=== PATIENT | male | born 1965 | race Caucasian/White ===

== ENCOUNTER 2020-08-22 12:54 | Emergency (ER) | payer OTHER, SELFPAY ==
[2020-08-22 14:00] VITALS: BP 149/91; PULSE 127; RESP 14; TEMP 36.7; O2SAT 96; BMI 29.7
--- NOTE | 2020-08-22 14:13 | HMH.EDUTC ---
[facility] Disposition Clinical Impression: Exposure to COVID-19 virus Disposition: Home, Self-Care Condition on Discharge: Good Instructions: DI for COVID-19 (Suspected or Confirmed ), Preventing the Spread of Coronavirus Discharge Instructions, How to Care for Someone with COVID-19 Additional Instructions: increase fluids tylenol for pain or fever if symptoms worsen or do not improve retrun or be seen in ed Referrals: Arik Mcleod MD [Primary Care Provider] - Time of Disposition: 16:08 Medical Decision Making - Rao Inquiry Pt receiving controlled substance: No Vital Signs: 08/22/20 14:00 08/22/20 15:10 Temperature 98.1 F 98.1 F Temperature Source Oral Pulse Rate 127 H Pulse Rate [Right Brachial] 127 H Respiratory Rate 14 14 Blood Pressure 149/91 H Blood Pressure [Right Arm] 149/91 H Blood Pressure Mean [Right Arm] 110 Blood Pressure Source [Right Arm] Automatic Cuff Blood Pressure Position [Right Arm] Sitting 02 Sat by Pulse Oximetry 96 Oxygen Delivery Method Room Air - Lab Data Lab Results 08/22/20 14:30: WBC 5.8, RBC 5.31, Hgb 16.7, Hct 49.2, MCV 92.6, MCH 31.4 H, MCHC 33.9, RDW 12.9, Plt Count 175, MPV 8.1, Neut % (Auto) 74.0, Lymph % (Auto) 17.7, Lamar % (Auto) 7.3, Eos % (Auto) 0.2, Baso % (Auto) 0.9, Neut # (Auto) 4.3, Lymph # (Auto) 1.0, Lamar # (Auto) 0.4, Eos # (Auto) 0.0, Baso # (Auto) 0.1 08/22/20 14:30: Sodium 137, Potassium 3.9, Chloride 96 L, Carbon Dioxide 31 H, Anion Gap 13.9, BUN 14, Creatinine 0.90, Estimated Creat Clear 116, Estimated GFR 88, Est GFR ( Amer) 107, Glucose 104 H, Calcium 9.6, Total Bilirubin 0.6, AST 44, ALT 45, Alkaline Phosphatase 71, Total Creatine Kinase 88, CK-MB (CK-2) 0.4, CK-MB (CK-2) Rel Index 0.5, Troponin I < 0.01, Total Protein 8.5 H, Albumin 4.6, Globulin 3.9 H, Albumin/Globulin Ratio 1.2 Result diagrams: 08/22/20 14:30 08/22/20 14:30 Orders (Tests/Meds): ED MEDICATIONS Generic Name Dose Route Start Last Admin Trade Name Misty PRN Reason Stop Dose Admin Sodium Chloride 1,000 mls @ 999 mls/hr 08/22/20 14:45 08/22/20 14:35 Sod Chlor 0.9% 1000ml Bag IV 08/22/20 15:45 999 mls/hr .Q1H1M WILL Administration ORDERS Category Date Time Status Covid-19 Nasal PCR ([facility]) Routine Lab 08/22/20 14:00 Received [facility] HPI - General Chief complaint: Urgent Treatment Center Stated complaint: headaches, earpain, cough Time Seen by Provider: 08/22/20 14:13 Mode of Arrival: Ambulatory Source of Information: Patient Limitations: No Limitations Description of Symptoms (Recalled from Triage Doc. by RN): PATIENT C/O HEADACHE, COUGH, LOSS OF APPETITE, DIARRHEA, EAR ACHE, CONGESTION, AND WEAKNESS X 5 DAYS HEENT Symptoms (Recalled from RN notes): Yes Resp Symptoms (Recalled from RN notes): No Skin Symptoms (Recalled from RN notes): No MS Symptoms (Recalled from RN notes): No Functional Status (Recalled from RN notes): WNL - History of Present Illness Provider Complaint: 55 yr old male presents for fever, diarrhea, nausea, cough, weakness for one week. pt states he had blood work for covid last week was neg - Related Data Home Medications Medication Instructions Recorded Confirmed Omeprazole [Omeprazole 20mg 20 mg PO DAILY 10/22/18 11/16/18 Capsule] Previous Rx's Medication Instructions Recorded amoxicillin 875 mg-potassium 1 tab PO Q12H 10 Days #20 tab 11/16/18 clavulanate 125 mg tablet benzonatate 100 mg capsule 100 mg PO TID PRN #30 cap 11/16/18 Allergies Allergy/AdvReac Type Severity Reaction Status Date / Time naproxen Allergy Severe Anaphylaxis Verified 08/22/20 14:13 - Worker's Comp Is this a Worker's Comp case?: No [facility] History - Hepatitis A Screen Drug use history?: No High risk sexual behaviors?: No History of sexually transmitted infection?: No Currently employed?: No Childcare worker?: No Do you have indoor plumbing?: Yes Do you have electricity?: Yes Attestation statement::
[2020-08-22 15:09] LABS: Basophils # 0.1 K/mm3 (0-0.2); Basophils % 0.9 % (0.1-2.0); Eosinophils % 0.2 % (0.1-12.0); Hematocrit 49.2 % (42.0-52.0); Hemoglobin 16.7 g/dL (14.1-18.0); Lymphocytes % 17.7 % (10-50); Mean Corpuscular HGB Conc 33.9 g/dL (31.8-35.4); Mean Corpuscular Hemoglobin 31.4 pg (27.0-31.2); Mean Corpuscular Volume 92.6 fl (80-94); Mean Platelet Volume 8.1 fl (7.4-10.4); Monocytes # 0.4 K/mm3 (0.1-1.0); Monocytes % 7.3 % (1.7-9.3); Neutrophils # 4.3 K/mm3 (1.8-7.8); Platelet Count 175 K/mm3 (142-424); Red Blood Count 5.31 M/mm3 (4.60-6.20); Red Cell Distribution Width 12.9 % (11.5-17.5); White Blood Count 5.8 K/mm3 (4.8-10.8)
[2020-08-22 15:10] VITALS: BP 149/91; PULSE 127; RESP 14; TEMP 36.7; O2SAT 100
[2020-08-22 15:16] LABS: Alanine Aminotransferase 45 U/L (12-78); Albumin Level 4.6 g/dl (3.5-5.0); Albumin/Globulin Ratio 1.2 (1.1-1.8); Alkaline Phosphatase 71 U/L (38-126); Anion Gap 13.9 mEq/L (5-15); Aspartate Amino Transferase 44 U/L (17-59); Bilirubin,Total 0.6 mg/dl (0.2-1.3); Blood Urea Nitrogen 14 mg/dl (9-20); Calcium 9.6 mg/dl (8.4-10.2); Carbon Dioxide 31 mmol/L (22.0-30.0); Chloride 96 mmol/L (98-107); Creatine Kinase 88 U/L (55-170); Creatinine Clearance Estimated 116 mL/min (50-200); Estimated Glomerular Filt Rate 88 ml/min (>60); GFR (African American) 107 ML/MIN (>60); Globulin 3.9 g/dL (1.3-3.2); Glucose 104 mg/dl (74-100); Potassium 3.9 mmoL/L (3.5-5.1); Sodium 137 mmol/L (136-145); Total Protein,Serum 8.5 g/dl (6.3-8.2)
[2020-08-22 15:29] LABS: CKMB Relative Index 0.5 U/L (0-4.0); Creatine Kinase MB 0.4 ng/ml (0.0-2.03)
[2020-08-22 15:30] LABS: Troponin I < 0.01 ng/ml (0.00-0.034)
[2020-08-22 16:10] VITALS: PULSE 98
--- NOTE | 2020-08-22 20:09 | PC.NURSE ---
POSITIVE COVID RESULTS CALLED TO PATIENT
[2020-08-22 21:26] LABS: UTC Influenza A Antigen Negative (Negative); UTC Influenza B Antigen Negative (Negative)
== END 2020-08-22 15:15 | disposition home or self-care (01) ==
PROVIDERS: Emergency Provider Nurse Practitioner Family; PCP Family Medicine
DX: U07.1 COVID-19 (principal); K21.9 Gastro-esophageal reflux disease without esophagitis
CPT/HCPCS: 80053; 82550; 82553; 84484; 85025; 87804; 96365; 99202; G0463; U0003

== ENCOUNTER → 2022-07-04 15:29 | Outpatient (CLI) | payer SELFPAY ==
--- NOTE | 2022-07-04 15:49 | XR_ITS ---
FINAL REPORT CLINICAL HISTORY: Sterno-clavicular joint enlargement FINDINGS: 2 views of the left clavicle were obtained. There is no acute fracture. The joint spaces are intact. There is no soft tissue abnormality. There is old granulomatous disease noted in the left upper lobe. IMPRESSION: No acute process. Reviewed, Interpreted and Dictated by Alphonso Schulte MD Transcribed by Brian Null Authenticated and [facility]
== END ==
PROVIDERS: PCP Family Medicine; Visit Provider Family Medicine
DX: M25.512 Pain in left shoulder (principal)
CPT/HCPCS: 73000

== ENCOUNTER → 2022-09-19 01:00 | Outpatient (CLI) | payer SELFPAY ==
[2022-09-19 18:29] LABS: Alanine Aminotransferase 36 U/L (12-78); Albumin Level 4.3 g/dl (3.5-5.0); Albumin/Globulin Ratio 1.8 (1.1-1.8); Alkaline Phosphatase 56 U/L (38-126); Anion Gap 11.1 mEq/L (5-15); Aspartate Amino Transferase 37 U/L (17-59); Bilirubin,Total 0.6 mg/dl (0.2-1.3); Blood Urea Nitrogen 17 mg/dl (9-20); Calcium 8.8 mg/dl (8.4-10.2); Carbon Dioxide 28 mmol/L (22.0-30.0); Chloride 102 mmol/L (98-107); Cholesterol 234 mg/dl (140-200); Estimated Glomerular Filt Rate 88 ml/min (>60); GFR (African American) 106 ML/MIN (>60); Globulin 2.4 g/dL (1.3-3.2); Glucose 80 mg/dl (74-100); HDL Cholesterol 59 mg/dl (40-60); Potassium 4.1 mmoL/L (3.5-5.1); Sodium 137 mmol/L (136-145); Total Protein,Serum 6.7 g/dl (6.3-8.2); Triglycerides 180 mg/dl (30-150); VLDL Cholesterol 36 mg/dL (0-40)
[2022-09-19 18:40] LABS: Direct LDL Cholesterol 126.39 mg/dL (100-129)
[2022-09-19 18:59] LABS: Prostate Specific Ag Screen 1.2 ng/ml (0.0-4.0)
== END ==
PROVIDERS: PCP Family Medicine; Visit Provider Family Medicine
DX: E78.5 Hyperlipidemia, unspecified (principal); I10 Essential (primary) hypertension; Z12.5 Encounter for screening for malignant neoplasm of prostate
CPT/HCPCS: 80053; 80061; G0103

== ENCOUNTER 2023-09-03 18:55 | Outpatient (CLI) | payer OTHER, SELFPAY ==
[2023-09-03 18:16] LABS: Coronavirus 19, PCR Not Detected (NotDetected); Influenza A, PCR Not Detected (NotDetected); Influenza B, PCR Not Detected (NotDetected)
[2023-09-03 18:48] LABS: Basophils % 0.5 % (0.1-2.0); Eosinophils % 0.2 % (0.1-12.0); Hematocrit 43.9 % (42.0-52.0); Hemoglobin 15.1 g/dL (14.1-18.0); Lymphocytes # 1.1 K/mm3 (0.7-4.5); Lymphocytes % 19.2 % (10-50); Mean Corpuscular HGB Conc 34.3 g/dL (31.8-35.4); Mean Corpuscular Hemoglobin 32.6 pg (27.0-31.2); Mean Corpuscular Volume 95.2 fl (80-94); Mean Platelet Volume 9.5 fl (7.4-10.4); Monocytes # 0.5 K/mm3 (0.1-1.0); Neutrophils # 4.1 K/mm3 (1.8-7.8); Platelet Count 106 K/mm3 (142-424); Red Blood Count 4.62 M/mm3 (4.60-6.20); Red Cell Distribution Width 12.9 % (11.5-17.5); White Blood Count 5.6 K/mm3 (4.8-10.8)
[2023-09-03 18:50] LABS: Alanine Aminotransferase 41 U/L (12-78); Albumin/Globulin Ratio 1.5 (1.1-1.8); Alkaline Phosphatase 67 U/L (38-126); Anion Gap 12.5 mEq/L (5-15); Aspartate Amino Transferase 43 U/L (17-59); Bilirubin,Total 0.6 mg/dl (0.2-1.3); Blood Urea Nitrogen 14 mg/dl (9-20); Calcium 8.1 mg/dl (8.4-10.2); Carbon Dioxide 25 mmol/L (22.0-30.0); Chloride 100 mmol/L (98-107); Estimated Glomerular Filt Rate 87 ml/min (>60); GFR (African American) 106 ML/MIN (>60); Globulin 2.6 g/dL (1.3-3.2); Glucose 111 mg/dl (74-100); Potassium 3.5 mmoL/L (3.5-5.1); Sodium 134 mmol/L (136-145); Total Protein,Serum 6.6 g/dl (6.3-8.2)
== END 2023-09-03 23:59 ==
PROVIDERS: PCP Nurse Practitioner; Visit Provider Nurse Practitioner
DX: J06.9 Acute upper respiratory infection, unspecified (principal)
CPT/HCPCS: 80053; 85025; 87636

== ENCOUNTER 2024-08-14 12:47 | Outpatient (CLI) | payer OTHER, SELFPAY ==
[2024-08-14 19:29] LABS: Microalbumin/Creatinine Ratio 5.3
[2024-08-14 19:30] LABS: Hemoglobin 14.8 g/dL (14.1-18.0); Red Blood Count 4.59 M/mm3 (4.60-6.20); White Blood Count 4.2 K/mm3 (4.8-10.8)
[2024-08-14 19:31] LABS: Eosinophils # 0.3 K/mm3 (0.0-0.4); Eosinophils % 6.3 % (0.1-12.0); Hematocrit 45.1 % (42.0-52.0); Lymphocytes # 1.2 K/mm3 (0.7-4.5); Lymphocytes % 28.2 % (10-50); Mean Corpuscular HGB Conc 32.8 g/dL (31.8-35.4); Mean Corpuscular Hemoglobin 32.2 pg (27.0-31.2); Mean Corpuscular Volume 98.3 fl (80-94); Mean Platelet Volume 10.8 fl (7.4-10.4); Monocytes # 0.5 K/mm3 (0.1-1.0); Monocytes % 11.8 % (1.7-9.3); Neutrophils # 2.2 K/mm3 (1.8-7.8); Neutrophils % 52.2 % (37.0-80.0); Platelet Count 151 K/mm3 (142-424); Red Cell Distribution Width 12.5 % (11.5-17.5)
[2024-08-14 19:37] LABS: Creatinine,Urine Random 128 mg/dL (Not Estab.)
[2024-08-14 20:06] LABS: Albumin Level 4.1 g/dl (3.5-5.0); Chloride 107 mmol/L (98-107); Potassium 4.3 mmoL/L (3.5-5.1); Sodium 137 mmol/L (136-145)
[2024-08-14 20:09] LABS: Alanine Aminotransferase 43 U/L (12-78); Albumin/Globulin Ratio 1.6 (1.1-1.8); Alkaline Phosphatase 59 U/L (38-126); Anion Gap 11.3 mEq/L (5-15); Aspartate Amino Transferase 45 U/L (17-59); Bilirubin,Total 0.5 mg/dl (0.2-1.3); Blood Urea Nitrogen 17 mg/dl (9-20); Carbon Dioxide 23 mmol/L (22.0-30.0); Cholesterol 240 mg/dl (140-200); Estimated Glomerular Filt Rate 100 ml/min (>60); GFR (African American) 121 ML/MIN (>60); Globulin 2.5 g/dL (1.3-3.2); Glucose 100 mg/dl (74-100); Total Protein,Serum 6.6 g/dl (6.3-8.2); Triglycerides 293 mg/dl (30-150); VLDL Cholesterol 59 mg/dL (0-40)
[2024-08-14 20:10] LABS: Calcium 9.4 mg/dl (8.4-10.2); Chol/HDL Ratio 4.4 (1-3.5); HDL Cholesterol 54 mg/dl (40-60)
[2024-08-14 20:21] LABS: Direct LDL Cholesterol 128.82 mg/dL (100-129)
[2024-08-14 20:40] LABS: Thyroid Stimulating Hormone 1.16 uIU/mL (0.465-4.68)
[2024-08-14 21:04] LABS: Prostate Specific Ag Screen 1.4 ng/ml (0.0-4.0)
[2024-08-14 21:23] LABS: Vitamin B12 260 pg/mL (239-931)
[2024-08-14 21:44] LABS: Hemoglobin A1C 5.1 % (4.0-6.0)
[2024-08-16 08:10] LABS: Testosterone,Total 292 ng/dL (264-916)
== END 2024-08-14 23:59 | disposition home or self-care (01) ==
LOC: LAB.DROPOF 08-18 12:48
PROVIDERS: PCP Nurse Practitioner; Visit Provider Nurse Practitioner
DX: Z13.21 Encounter for screening for nutritional disorder (principal); Z12.5 Encounter for screening for malignant neoplasm of prostate; Z13.1 Encounter for screening for diabetes mellitus; I10 Essential (primary) hypertension; E79.0 Hyperuricemia without signs of inflammatory arthritis and tophaceous disease; E78.5 Hyperlipidemia, unspecified; K21.9 Gastro-esophageal reflux disease without esophagitis; N52.9 Male erectile dysfunction, unspecified; Z68.32 Body mass index [BMI] 32.0-32.9, adult; E66.9 Obesity, unspecified
CPT/HCPCS: 80050; 80053; 80061; 82043; 82570; 82607; 83036; 84403; 84443; 85025; G0103

== ENCOUNTER 2025-06-17 13:29 | Outpatient (CLI) | payer OTHER, SELFPAY ==
--- NOTE | 2025-06-17 13:34 | XR_ITS ---
FINAL REPORT TECHNIQUE: Chest PA & Lateral CLINICAL HISTORY: cough, orthopnea, bibasilar rales COMPARISON: None FINDINGS: 2 views of the chest were performed. The heart size is normal. The mediastinum is within normal limits. The lungs are underinflated. There is mild bibasilar atelectasis. There are no pleural effusions. There is no pneumothorax. The bony thorax appears intact. IMPRESSION: Mild bibasilar atelectasis. Reviewed, Interpreted and Dictated by Alphonso Schulte MD Transcribed by Selma Rangel Authenticated and [facility]
--- OUTSIDE RECORDS SUMMARY | 2025-06-17 13:36 | XMS_ITS | Clinical Summary ---
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 Active Surgical History Surgery Date Site/Laterality Comments CARPAL TUNNEL RELEASE NASAL SEPTUM SURGERY Social History Tobacco Use Types Packs/Day Years Used Date Smoking Tobacco: Never Sex and Gender Information Value Date Recorded Sex Assigned at Not on file Legal Sex Male 3:58 PM EDT Gender Identity Not on file Sexual Orientation Not on file Last Filed Vital Signs Vital Sign Reading Time Taken Comments Blood Pressure 124/79 02/02/2015 7:05 PM EDT Pulse 84 02/02/2015 7:05 PM EDT Temperature 36.8 C (98.2 F) 02/02/2015 7:05 PM EDT Respiratory Rate 16 02/02/2015 7:05 PM EDT Oxygen Saturation 99% 02/02/2015 7:05 PM EDT Inhaled Oxygen Concentration - - Weight 83.5 kg (184 lb) 02/02/2015 5:12 PM EDT Height 170.2 cm (5' 7 ) 02/02/2015 5:12 PM EDT Body Mass Index 28.82 02/02/2015 5:12 PM EDT Plan of Treatment Health Maintenance Due Date Last Done Comments Annual Wellness Exam 1970 DTaP/TDaP/Td (1 - Tdap) 1986 Hepatitis B Vaccine (1 of 3 - 19+ 3-dose series) 1986 Cologuard 2012 Colon Cancer Screening 2012 Colonoscopy 2012 FIT 2012 Sigmoidoscopy 2012 Virtual Colonography 2012 Pneumococcal Vaccine 50+ (1 of 1 - PCV) 2017 Zoster (1 of 2) 2017 COVID-19 Vaccine (1 - 2024-2 6 season) 2025 Influenza Vaccine (#1) 2025 Meningococcal B Vaccine Aged Out No l onger eligible based on patient's age to complete this topic Insurance * Guarantor: Dimitri Chun Account Type Relation to Patient Date of Phone Billing Address Personal/Family Self 1965 [address] [place] [address] [employer] 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
[2025-06-17 18:34] LABS: Hematocrit 45.3 % (42.0-52.0); Hemoglobin 14.9 g/dL (14.1-18.0); Immature Granulocytes % 0.4 %; Mean Corpuscular HGB Conc 32.9 g/dL (31.8-35.4); Mean Corpuscular Hemoglobin 33.2 pg (27.0-31.2); Mean Corpuscular Volume 100.9 fl (80-94); Nucleated Red Blood Cells % 0 %; Platelet Count 156 K/mm3 (142-424); Red Blood Count 4.49 M/mm3 (4.60-6.20); Red Cell Distribution Width-SD 46.5 fL; White Blood Count 5.2 K/mm3 (4.8-10.8)
[2025-06-17 19:29] LABS: Alanine Aminotransferase 58 U/L (12-78); Albumin Level 3.6 g/dl (3.5-5.0); Albumin/Globulin Ratio 0.9 (1.1-1.8); Alkaline Phosphatase 74 U/L (38-126); Anion Gap 12.6 mEq/L (5-15); Aspartate Amino Transferase 55 U/L (17-59); Bilirubin,Total 0.6 mg/dl (0.2-1.3); Blood Urea Nitrogen 15 mg/dl (9-20); Calcium 9.4 mg/dl (8.4-10.2); Carbon Dioxide 29 mmol/L (22.0-30.0); Chloride 101 mmol/L (98-107); Cholesterol 242 mg/dl (140-200); Creatinine,Serum 0.90 mg/dl (0.66-1.25); Estimated Glomerular Filt Rate 87 ml/min (>60); GFR (African American) 105 ML/MIN (>60); Globulin 4.0 g/dL (1.3-3.2); Glucose 106 mg/dl (74-100); HDL Cholesterol 64 mg/dl (40-60); Potassium 4.6 mmoL/L (3.5-5.1); Sodium 138 mmol/L (136-145); Total Protein,Serum 7.6 g/dl (6.3-8.2); Triglycerides 237 mg/dl (30-150)
[2025-06-17 19:39] LABS: NT Pro Brain Natriuretic Pep. 84.3 pg/mL (0-125)
[2025-06-17 20:19] LABS: Hepatitis C Ab Qual. W/ RFX NEGATIVE (Negative)
[2025-06-18 12:18] LABS: Hemoglobin A1C 5.3 % (4.0-6.0)
[2025-06-19 06:11] LABS: Hepatitis B Surface Antigen Negative (Negative)
== END 2025-06-17 23:59 | disposition home or self-care (01) ==
LOC: RAD 13:30
PROVIDERS: PCP Nurse Practitioner; Visit Provider Nurse Practitioner
DX: J98.11 Atelectasis (principal); R60.0 Localized edema; R06.01 Orthopnea; R09.89 Other specified symptoms and signs involving the circulatory and respiratory systems; E78.5 Hyperlipidemia, unspecified; Z11.59 Encounter for screening for other viral diseases; I10 Essential (primary) hypertension; K21.9 Gastro-esophageal reflux disease without esophagitis; R73.01 Impaired fasting glucose
CPT/HCPCS: 71046; 80053; 80061; 82043; 82570; 83036; 83880; 85025; 86803; 87340; 87389